=== PATIENT | female | born 1930 | race Caucasian/White ===

== ENCOUNTER → 2016-09-04 | Outpatient (REF) | payer MEDICARE, OTHER ==
[~2016-09-04] MED LIST: /AMLO25TA PO; /BRIN1OS OU; /PRAV20TA PO; ACET50TAOT PO; ALEN5TAB PO; AMLO5TAB2 PO; AMPI50CA PO; ASPI81CH32 PO; ASPI81TA24 PO; ASPI81TA7 PO; AZOP0.2S OU; BIMA01SOL OD; BIMA01SOL OU; CALC25TA PO; CALC500T19 PO; CEFD1CAP8 PO; DOCU10CA PO; FURO20TA2 PO; ICAPTAB8 PO; LEVO25TA4 PO; MIRA33504 PO; NEXI40CA PO; NEXI40GR PO; PRAV20TA2 PO; SENO8.6T5 PO; SYNT100T PO; TIMO5OPD OU; TYLE325T5 PO
[2016-09-04 14:02] LABS: PHOSPHORUS LEVEL 3.2 MG/DL (2.5-4.9)
== END ==
LOC: M LAB REF 13:23
PROVIDERS: ATTEND Nurse Practitioner Adult Health
DX: E03.9 Hypothyroidism, unspecified (principal); I12.9 Hypertensive chronic kidney disease with stage 1 through stage 4 chronic kidney disease, or unspecified chronic kidney disease; N18.3 Chronic kidney disease, stage 3 (moderate)

== ENCOUNTER → 2017-11-04 | Outpatient (REF) | payer MEDICARE, OTHER | LOC: M LAB REF 12:27 | DX: N39.0 Urinary tract infection, site not specified (principal) ==

== ENCOUNTER → 2018-06-30 | Outpatient (REF) | payer MEDICARE, OTHER ==
[~2018-06-30] MED LIST changes: -/AMLO25TA PO; -/BRIN1OS OU; -/PRAV20TA PO; +ACET500T15 PO; -ACET50TAOT PO; -AMLO5TAB2 PO; +AMLO5TAB6 PO; -ASPI81CH32 PO; +ASPI81CH33 PO; +NORV2TAB PO; +PRAV1TAB39 PO
== END ==
LOC: M LAB REF 17:33
PROVIDERS: ATTEND Nurse Practitioner Adult Health
DX: R35.0 Frequency of micturition (principal)

== ENCOUNTER → 2019-07-09 | Outpatient (REF) | payer MEDICARE, MEDICAID | LOC: M LAB REF 11:36 | PROVIDERS: ATTEND Nurse Practitioner Adult Health | DX: R35.0 Frequency of micturition (principal) ==

== ENCOUNTER → 2019-08-03 | Outpatient (CLI) | payer MEDICARE, MEDICAID ==
[~2019-08-03] MED LIST changes: +E-Z-GAS II EFFERVESCENT PACKET (SODIUM BICARB./CITRIC ACID/SIMETHICONE) As Ordered ONE; +E-Z-HD 98% w/w 340GM SUSP BTL As Ordered ONE; +E-Z-PAQUE 96% w/w SUSP 176GM BTL As Ordered ONE
--- NOTE | 2019-08-04 08:16 | REP ---
Esophagram The procedure was performed under the direct supervision of Dr. Virgen. The images were reviewed with Dr. Virgen. A single view PA chest x-ray is submitted as a pharmacy helper film. The superior mediastinal structures are midline. The heart size is within normal limits. The lungs are clear. Liquid barium and gas producing granules were given in the erect position as well as liquid barium in the prone oblique positions in order to perform a double contrast esophagram examination. The oral and pharyngeal stages of deglutition are unremarkable. There are esophageal transport there are tertiary waves demonstrated. There is no esophagitis, stricture, mucosal ring or hiatal hernia. Gastroesophageal reflux is not demonstrated on this examination. Impression: There are tertiary waves demonstrated. Otherwise, unremarkable double contrast esophagram examination. One minutes of fluoro time was utilized for this procedure. Electronically Signed by CARMEN Dillon 08/03/2019 04:20 P Electronically Signed by Ochoa Virgen MD 08/04/2019 08:07 A
== END ==
LOC: M RAD 08:07
PROVIDERS: ATTEND Otolaryngology
DX: K21.9 Gastro-esophageal reflux disease without esophagitis (principal)